=== PATIENT | female | born 1935 | race Caucasian/White ===

== ENCOUNTER → 2016-12-28 | Outpatient (CLI) | payer MEDICARE, OTHER ==
[~2016-12-28] MED LIST: AMBIEN5 MG PO; ANUSOL-HC25 M1 PR; ASPIRIN 325MG325 MG PO; ASPIRIN 81MG TA81 MG PO; ATROVENT H0.017 MG/A IH; CEFZIL250 MG PO; CELEXA10 M1 PO; DONEPEZIL 5MG TA5 MG PO; FLEET 135 ML135 ML RC; ISOSORBIDE MONO30 MG PO; LEVAQUIN500 MG PO; LIPITOR20 MG PO; LIPITOR40 M1 PO; LORTAB 500 MG-71 TAB PO; LOVENOX40 MG/0.4 SC; MULTIVITAMIN1 TA1 PO; NORCO 325 MG-51 TAB PO; OMEPRAZOLE40 MG PO; ONE DAILY1 TAB PO; PHENERGAN 2525 MG/ML IM; PHENERGAN 25MG.25 M1 PO; PHENERGAN 25MG.25 M1 PR; PYRIDIUM200 M2 PO; SINEMET 25/1001 TAB NG; SINGULAIR 10 MG10 MG PO; SINGULAIR10 MG PO; TYLENOL ES500 M1 PO; VICODIN 5/500 T1 TAB PO; VITAMIN D31000 IU PO; ZOFRAN ODT4 MG PO
--- NOTE | 2017-01-15 08:19 | RADIOLOGY REPORT PS360 ---
CT ABD PELVIS W/O CONTRAST CLINICAL INDICATION: Left lower quadrant painLLQ PAIN ORDERING PHYSICIAN: Blake Chester MD PATIENT AGE: 81 years COMPARISON: Prior CT abdomen and pelvis from 07/16/2016. Recent UGI, 12/18/2016 TECHNIQUE: Axial images obtained with sagittal and coronal reformats. PROCEDURE: Helical CT scans abdomen pelvis with sagittal and coronal reconstruction CT workstation Oral Contrast: NoneIV Contrast: None . FINDINGS: There is a moderate degree of artifact from residual barium contrast within the large bowel from recent UGI.. Artifact is also present from left hip prosthesis.Moderate degree of artifact obscures fine detail of the abdomen and pelvis... There is consideration of repeat exam as was discussed by Dr. Hough & the technologist. However since this this is not occurred, I have been asked to dictate to complete the exam to facilitate patient care. Lower thorax.. Moderate sized hiatal hernia, similar to previous study. Lung bases are clear with no active disease. Heart upper normal size. Abdomen/pelvis: lack of oral and IV contrast decreases sensitivity as does the streak artifact noted above Liver. Streak artifact limits evaluation but no focal lesions identified on the day study and I see no change since July 2016. Gallbladder. Again note small gallstone at deep in gallbladder. Pancreas unremarkable. Adrenals unremarkable. Kidneys. No urinary tract calculi nor obstruction.\ No retroperitoneal adenopathy. Aorta normal caliber. Pelvis. Hysterectomy. No adnexal masses. Bladder unremarkable on this noncontrast study with moderate streak artifact at pelvis from the left hip prosthesis limiting visualization here. GI tract. Stable Moderate hiatal hernia has been previously noted. Stomach and small bowel appear satisfactory. Large bowel. Dense residual barium within large bowel from UGI 10 days ago. This would imply relatively slow clearing of contents from large bowel Appendix is only questionably visualized. But I see no good evidence of appendicitis. Osseous There is a severe wedge compression fracture that is occurred at T12. Up to nearly 60 percent loss of height. Also note mild retropulsion with Slight posterior bulging, particularly along its posterior inferior margin. This indents the spinal canal at midline and more so the right yielding mild central canal stenosis at this level. The spinal canal narrows to just less than 10 mm at midline. . IMPRESSION--------- 1. Significant wedge compression fracture T12 has developed since Jul 2016. Up to 50-60% loss of height. Also associated Mild retrolisthesis yields moderate encroachment upon spinal canal. With borderline - mild spinal stenosis at this level. Consider MR to further evaluate if symptoms here. 2. No acute or discrete new findings at abdomen/pelvis vs July 2016. 3. Cholelithiasis within moderately distended gallbladder. 4.. Moderately large hiatal hernia again seen. 5. Compared to Jul 2016: -Previous bilateral hydronephrosis has resolved -Previously large amount stool throughout colon is been replaced w/ barium contrast from recent UGI. With now only Minimal stool rectosigmoid.. -The the previous inflammation in presacral, perirectal region appears to have resolved. Note: Large amount of retained barium from recent UGI yields some additional streak artifact which slightly limits the study, as does the streak artifact from left hip prosthesis. Apparently due to this this study was not initially dictated as a discussion with Dr. Hough & technologist to initiate a repeat study study. However since that has not been performed on a been requested to dictate this exam at this time. I would note there is a significant amount retained barium after 10 days which suggests slow transit & tendency towards mild constipation.
== END ==
LOC: RAD 12:47
DX: R10.32 Left lower quadrant pain (principal)

== ENCOUNTER → 2017-04-30 | Outpatient (CLI) | payer MEDICARE, OTHER ==
--- NOTE | 2017-04-30 13:56 | CARDIOVASCULAR REPORT ---
"Cerebrovascular Exam Indications: 433.10 Occlusion/stenosis of carotid artery without cerebral infarction. IMPRESSIONS 1. The bilateral vertebral arteries are patent with normal antegrade flow. 2. Study suggests 50-69% stenosis involving the right internal carotid artery. 3. Study suggests 50-69% stenosis involving the left internal carotid artery. No change from the study of 17-Sep-2014. History: Coronary artery disease. Risk factors: Hypertension. Hyperlipidemia. Carotid duplex study. Complete study and Doppler flow study including spectral analysis, color and mcgarry scale imaging. Location: Vascular laboratory. Patient status: Outpatient. Tables: Arterial flow: + +--------+--------+ |Location |V sys |V ed | + +--------+--------+ |Right CCA - proximal|75.4cm/s|14.1cm/s| + +--------+--------+ |Right CCA - distal |80.9cm/s|14.9cm/s| + +--------+--------+ |Right ECA |131cm/s |--------| + +--------+--------+ |Right ICA - proximal|240cm/s |36.5cm/s| + +--------+--------+ |Right ICA - mid |165cm/s |26.4cm/s| + +--------+--------+ |Right ICA - distal |124cm/s |26.5cm/s| + +--------+--------+ |Right vertebral |41.9cm/s|--------| + +--------+--------+ |Left CCA - proximal |60.8cm/s|13.3cm/s| + +--------+--------+ |Left CCA - distal |68.4cm/s|11.9cm/s| + +--------+--------+ |Left ECA |115cm/s |--------| + +--------+--------+ |Left ICA - proximal |138cm/s |18.9cm/s| + +--------+--------+ |Left ICA - mid |153cm/s |19.6cm/s| + +--------+--------+ |Left ICA - distal |87.3cm/s|18.9cm/s| + +--------+--------+ |Left vertebral |35.6cm/s|--------| + +--------+--------+ Velocity ratios: + + + + + + | |Right, V sys|Right, V ed|Left, V sys|Left, V ed| + + + + + + |Max ICA/dist CCA|2.97 |2.45 |2.24 |1.65 | + + + + + + (Report amended ) Electronically signed by: Darien Hough [id number]"
--- NOTE | 2017-04-30 19:30 | RADIOLOGY REPORT PS360 ---
PROCEDURE: 2-D M-mode and color Doppler study INDICATIONS FOR THE TEST: Chest pain COPD Heart MurmurX Tobacco Smoking Palpitations Fatigue Syncope Edema HypertensionXDiabetes Mellitus Rheumatic Fever SOBXDOE Obesity HyperlipidemiaX Family History HD Additional History CM CAD PATIENT INFORMATION HEIGHT: 62 WEIGHT:125 GENDER: Female B/P:120/70 2-D/M-MODE INTERPRETATION: 2-D MEASUREMENTS OBSERVED VALUES IN CMS Right Ventricular Dimension (RVDd) 1.9 Interventricular Septum (Thickness)(IVsd .9 Left Ventricular Internal Dimensions(LVIDd) 5.4 Left Ventricular Posterior Wall (Thickness)(LVPWd) .8 Aortic Root 2.6 Aortic Cusp Separation 1.3 Left Atrial Dimensions (LAD) 3.2 2D 1. Left atrium is mildly enlarged, left ventricle is normal size, there is borderline concentric left ventricular hypertrophy, visually estimated ejection fraction of 55% with no obvious regional wall motion abnormality. 2. The right atrium and right ventricle are normal size and contractility. 3. The aortic valve is thickened and calcified with mild restriction the leaflet mobility. 4. The mitral valve has mild mitral annular calcification. 5. The tricuspid valve leaflets are minimally thickened. 6. The pulmonic valve is not well visualized. 7. No significant pericardial effusion noted. DOPPLER INTERROGATION: 1. The maximum aortic out flow velocity recorded study is 2.27 m/s, resulting in a mean gradient across valve of 13 mmHg, this represents mild aortic stenosis, there is mild aortic insufficiency present. 2. The mitral inflow velocities within normal range, there is no mitral stenosis, there is mild mitral regurgitation. Grade 1 diastolic dysfunction seen without tissue Doppler evidence of raised left atrial pressure. 3. There is mild tricuspid regurgitation noted, tricuspid regurgitant jet velocity is insufficient for calculation of the right ventricular systolic pressure. CONCLUSION: 1. Mildly enlarged left atrium, normal left ventricular size, mild concentric left ventricular hypertrophy present visually estimated ejection fraction 55% with no obvious regional wall motion abnormality, grade 1 diastolic dysfunction seen without tissue Doppler evidence of raised left atrial pressure. 2. Minimally thickened and calcified aortic valve with mean gradient across valve of 13 mmHg represents mild aortic stenosis, there is mild aortic insufficiency present. 3. Mild mitral and tricuspid regurgitation, tricuspid regurgitant jet velocity insufficient for calculation of the right ventricular systolic pressure. 4. No significant pericardial effusion noted.
== END ==
LOC: RT 12:43
DX: I42.8 Other cardiomyopathies (principal); I65.23 Occlusion and stenosis of bilateral carotid arteries

== ENCOUNTER → 2017-07-08 | Outpatient (CLI) | payer MEDICARE, OTHER ==
[2017-07-08 13:23] LABS: BUN 36 mg/dL (7-18)
[2017-07-08 13:25] LABS: GFR (ESTIMATED) 29 ML/MIN (59-)
--- NOTE | 2017-07-08 13:57 | RADIOLOGY REPORT PS360 ---
CT HEAD W/O CONTRAST HISTORY: DIPLOPIA ORDERING PHYSICIAN: JONATHAN COTTO PATIENT AGE: 82 years COMPARISON: None TECHNIQUE: Axial images obtained without contrast. Brain and bone windows reviewed. FINDINGS: No midline shift, mass effect, intracranial hemorrhage, hydrocephalus, or extra-axial fluid collection is evident. There is generalized atrophy with hypoattenuation in the periventricular and subcortical region consistent with ischemic gliotic change from microvascular disease. Incidental calcification is present within the basal ganglia. The clivus has an abnormal appearance mottled in density with some heterogeneous density noted within the base of the posterior clinoid process. This however had a similar appearance on a CT angiogram of the neck on 11/29/2010 and may represent sequela from nonpneumatization of the sphenoid sinus. MRI may confirm if clinically warranted. No other significant abnormalities evident. IMPRESSION: 1. No acute intracranial findings. 2. Atrophy with chronic ischemic change. 3. Heterogeneous density of the clivus which may be related to nonpneumatization of the sphenoid sinus. MRI may confirm clinically warranted
== END ==
LOC: RAD 13:02
PROVIDERS: Ophthalmology
DX: H52.13 Myopia, bilateral (principal)